=== PATIENT | male | born 1985 | race Hispanic/Latino ===

== ENCOUNTER 2020-08-23 16:08 | Emergency (ER) | payer OTHER ==
[~2020-08-23] VITALS: Ht 172.7 cm; Wt 79.4 kg
[2020-08-23] MEDS ORDERED: CLINDAMYCIN HCL 150 MG CAP PO ONE (17:00)
[2020-08-23] MEDS ORDERED: FENTANYL CITRATE/PF 100MCG/2 ML INJ IJ ONE (17:00)
[2020-08-23] MEDS ORDERED: BUPIVACAINE HCL 0.5% INJ 30 ML VIAL INJ ONE (17:00)
[2020-08-23] MEDS ORDERED: TETANUS/DIPHTHERIA TOX ADULT 0.5 ML SYR IM ONE (17:00)
[2020-08-23] MEDS ORDERED: HYDROCODONE/APAP 10MG-325MG TAB PO ONE (17:00)
[2020-08-23] MEDS ORDERED: FENTANYL CITRATE/PF 100MCG/2 ML INJ ONE (17:08)
[2020-08-23] MEDS ORDERED: HYDROCODONE/APAP 10MG-325MG TAB ONE (17:08)
[2020-08-23] MEDS ORDERED: TETANUS/DIPHTHERIA TOX ADULT 0.5 ML SYR ONE (17:08)
[2020-08-23] MEDS ORDERED: CLINDAMYCIN HC150 MG PO (19:19)
[2020-08-23] MEDS ORDERED: BUPIVACAINE HCL 0.5% 10ML MPF VIAL INJ ONE (19:20)
== END 2020-08-23 20:00 | disposition home or self-care (01) ==
LOC: ER 17:15
DX: S62.633B Displaced fracture of distal phalanx of left middle finger, initial encounter for open fracture (principal); S66.303A Unspecified injury of extensor muscle, fascia and tendon of left middle finger at wrist and hand level, initial encounter; W23.1XXA Caught, crushed, jammed, or pinched between stationary objects, initial encounter; Y99.0 Civilian activity done for income or pay; Z87.19 Personal history of other diseases of the digestive system
CPT/HCPCS: 12001; 73140; 90471; 90714; 99283; J3010